=== PATIENT | male | born 1990 | race Caucasian/White ===

== ENCOUNTER 2017-02-23 23:35 | Emergency (ER) | payer SELFPAY ==
[~2017-02-23] VITALS: Ht 180.3 cm; Wt 72.5 kg
[2017-02-24 00:30] VITALS: BP 118/89
== END 2017-02-24 00:32 | disposition home or self-care (01) ==
LOC: EMS 23:36
DX: L03.317 Cellulitis of buttock (principal); F12.90 Cannabis use, unspecified, uncomplicated; F17.210 Nicotine dependence, cigarettes, uncomplicated
CPT/HCPCS: 99283

== ENCOUNTER 2024-03-19 07:35 | Emergency (ER) | payer MEDICAID ==
[~2024-03-19] VITALS: Ht 180.3 cm; Wt 77.2 kg
[2024-03-19 07:44] VITALS: TEMP 98.1
[2024-03-19] MEDS: IBUPROFEN 600 MG TABLET PO ONE (08:27)
[2024-03-19] MEDS: LIDOCAINE 1% 10 ML VIAL SQ ONE (08:28)
[2024-03-19] MEDS ORDERED: ACET-2080 PO (09:42)
[2024-03-19] MEDS ORDERED: CEPH-558 PO (09:42)
[2024-03-19] MEDS ORDERED: IBUP-1554 PO (09:42)
[2024-03-19] MEDS ORDERED: BACI28.410 TP (09:42)
[2024-03-19] MEDS: CEPHALEXIN MONOHYDRATE 500 MG CAPSULE PO ONE (09:50)
[2024-03-19] MEDS: DOXYCYCLINE HYCLATE 100 MG TABLET PO ONE (09:50)
[2024-03-19 10:00] VITALS: BP 129/79; PULSE 62; RESP 18; O2SAT 97
[2024-03-19] MEDS: ACETAMINOPHEN/CODEINE 300-30 MG TABLET PO ONE (10:02)
== END 2024-03-19 10:21 | disposition home or self-care (01) ==
LOC: EMS 07:35
DX: L03.011 Cellulitis of right finger (principal); L02.511 Cutaneous abscess of right hand; F12.90 Cannabis use, unspecified, uncomplicated; F17.210 Nicotine dependence, cigarettes, uncomplicated; Z98.890 Other specified postprocedural states
CPT/HCPCS: 99284; 10160; 26010; 73140; J3490